=== PATIENT | female | born 1980 | race Hispanic/Latino ===

== ENCOUNTER 2018-10-21 14:48 | Outpatient (CLI) | payer OTHER ==
--- NOTE | 2018-10-21 15:20 | ULT ---
BILATLERAL RENAL ULTRAOSUND: 10/21/18 CLINICAL INDICATION: Hematuria. FINDINGS: The right renal length is 9.1 cm and left renal length 9.6 cm. There is no hydronephrosis or suspici ous lesion of either kidney. Urinary bladder is grossly unremarkable. IMPRESSION: No acute renal pathology is evident, bilaterally. POS: [facility]
== END 2018-10-21 14:49 | disposition home or self-care (01) ==
LOC: BICULT 14:48
PROVIDERS: ATTEND Family Medicine
DX: R31.9 Hematuria, unspecified (principal)
CPT/HCPCS: 76770